=== PATIENT | male | born 1985 | race African-American/Black ===

== ENCOUNTER 2019-11-03 07:40 | Emergency (ER) | payer MEDICAID ==
[~2019-11-03] VITALS: Ht 172.7 cm; Wt 90.7 kg
[2019-11-03 08:00] VITALS: BP 143/71
--- NOTE | 2019-11-03 08:04 | Emergency Room Report ---
History of Present Illness General Chief Complaint: Vomiting Source: Patient Present Illness HPI 34-year-old male with vomiting since 2 AM. Reports innumerable episodes of vomiting nonbloody nonbilious. Last episode 15 minutes prior to arrival. Patient unable to tolerate Pedialyte. Patient reports associated nausea. Patient had subjective fevers. Patient had no recent travel. Patient did not eat anything out of the ordinary. He describes diffuse crampy abdominal pain with episodes of vomiting. Patient denies any diarrhea constipation. Patient did not try any medications. He denies any prior medical history or surgeries. Denies alcohol consumption or drug use. Allergies: Coded Allergies: No Known Allergies (Unverified , 11/03/19) Patient History Past Medical History: none Past Surgical History: none Pertinent Family History: none Social History: Denies: smoking, alcohol use, drug use Nursing Documentation-[facility] Past Medical History: No Stated History Review of Systems Constitutional: Denies: chills, fever Respiratory: Denies: cough, shortness of breath Cardiovascular: Denies: chest pain, palpitations Gastrointestinal: Reports: abdominal pain, nausea, vomiting; Denies: diarrhea Genitourinary: Denies: hematuria, pain Musculoskeletal: Denies: joint swelling Skin: Denies: rash, lesions Neurological: Denies: headache, dizziness Physical Exam Vital Signs Date Time Temp Pulse Resp B/P (MAP) Pulse Ox O2 Delivery O2 Flow Rate FiO2 11/03/19 07:50 97.9 88 14 113/73 (86) 98 Room Air Sp02 EP Interpretation: reviewed General Appearance: well appearing, no apparent distress, non-toxic Head: normocephalic, atraumatic Eyes: bilateral eye normal inspection ENT: hearing grossly normal, EOM grossly intact, moist mucus membranes Neck: supple Respiratory: lungs clear, normal breath sounds, no respiratory distress, speaking full sentences Cardiovascular #1: normal peripheral pulses, regular rate, rhythm, no edema, normal capillary refill Cardiovascular #2: 2+ radial (R), 2+ radial (L) Gastrointestinal: non tender, soft, no mass, no organomegaly, non-distended, no guarding, no hernia, no rebound Rectal: deferred Musculoskeletal: moves extm spontaneously, no lower extremity edema Neurologic: grossly normal Psychiatric: mood/affect normal Skin: warm/dry, normal turgor Medical Decision Making Diagnostic Impression: Primary Impression: Vomiting ER Course 34-year-old male with nausea and vomiting. Since 2 AM. No abdominal surgeries , and is on exam. Differential includes gastroenteritis, gastritis, cholecystitis, cholelithiasis , small bowel obstruction, acute abdomen, hernia Doubt bowel obstruction, acute abdomen or hernia given patient is nontender exam with no masses and with no prior surgical history. Patient's symptoms likely consistent with gastroenteritis. Will give IV fluids and IV Zofran. Will reassess. Laboratory Tests Test 11/03/19 08:16 11/03/19 09:11 White Blood Count 10.5 K/UL (4.8-10.8) Red Blood Count 6.08 M/UL (4.70-6.10) Hemoglobin 15.5 G/DL (14.2-18.0) Hematocrit 47.1 % (42.0-52.0) Mean Corpuscular Volume 78 FL (80-99) L Mean Corpuscular Hemoglobin 25.4 PG (27.0-31.0) L Mean Corpuscular Hemoglobin Concent 32.8 G/DL (32.0-36.0) Red Cell Distribution Width 12.1 % (11.6-14.8) Platelet Count 212 K/UL (150-450) Mean Platelet Volume 7.6 FL (6.5-10.1) Neutrophils (%) (Auto) % (45.0-75.0) Lymphocytes (%) (Auto) % (20.0-45.0) Monocytes (%) (Auto) % (1.0-10.0) Eosinophils (%) (Auto) % (0.0-3.0) Basophils (%) (Auto) % (0.0-2.0) Differential Total Cells Counted 100 Neutrophils % (Manual) 96 % (45-75) H Lymphocytes % (Manual) 3 % (20-45) L Monocytes % (Manual) 1 % (1-10) Eosinophils % (Manual) 0 % (0-3) Basophils % (Manual) 0 % (0-2) Band Neutrophils 0 % (0-8) Platelet Estimate Adequate Platelet Morphology Normal Red Blood Cell Morphology Normal Sodium Level 141 MMOL/L (136-145) Potassium Level 3.8 MMOL/L (3.5-5.1) Chloride Level 104 MMOL/L (98-107) Carbon Dioxide Level 25 MMOL/L (21-32) Anion Gap 12 mmol/L (5-15) Blood Urea Nitrogen 18 mg/dL (7-18) Creatinine 1.2 MG/DL (0.55-1.30) Estimate Glomerular Filtration Rate > 60 mL/min (>60) Glucose Level 147 MG/DL (74-106) H Calcium Level 9.5 MG/DL (8.5-10.1) Total Bilirubin 0.3 MG/DL (0.2-1.0) Aspartate Amino Transferase (AST) 18 U/L (15-37) Alanine Aminotransferase (ALT) 35 U/L (12-78) Alkaline Phosphatase 58 U/L (46-116) Total Protein 7.9 G/DL (6.4-8.2) Albumin 4.4 G/DL (3.4-5.0) Globulin 3.5 g/dL Albumin/Globulin Ratio 1.3 (1.0-2.7) Lipase 109 U/L (73-393) Urine Color Yellow Urine Appearance Clear Urine pH 5 (4.5-8.0) Urine Specific [place] 1.020 (1.005-1.035) Urine Protein 2+ (NEGATIVE) H Urine Glucose (UA) Negative (NEGATIVE) Urine Ketones 1+ (NEGATIVE) H Urine Blood Negative (NEGATIVE) Urine Nitrite Negative (NEGATIVE) Urine Bilirubin Negative (NEGATIVE) Urine Urobilinogen Normal MG/DL (0.0-1.0) Urine Leukocyte Esterase Negative (NEGATIVE) Urine RBC 0 /HPF (0 - 0) Urine WBC 0 /HPF (0 - 0) Urine Squamous Epithelial Cells Occasional /LPF Urine Amorphous Sediment Few /LPF (NONE) H Urine Bacteria Occasional /HPF (NONE) Urine Mucus Moderate /LPF (NONE/OCC) H Lab Results Impression CBC within normal limits, chemistry within normal limits, normal BUN and creatinine. Urinalysis within normal limits other than mild elevated ketone. Last Vital Signs Date Time Temp Pulse Resp B/P (MAP) Pulse Ox O2 Delivery O2 Flow Rate FiO2 11/03/19 07:50 97.9 88 14 113/73 (86) 98 Room Air Reevaluation Impression Patient tolerated p.o. challenge. Patient stable for outpatient follow-up and discharge. Patient given Zofran ODT for symptomatic control. Given warning and return precautions. Disposition: HOME, SELF-CARE Condition: Stable Scripts Ondansetron Odt* (ZOFRAN ODT*) 8 Mg Tab.rapdis 8 MG ORAL Q6H PRN for Nausea & Vomiting, #10 TAB Prov: Joshua Flowers M.D. 11/03/19 Referrals: NOT CHOSEN IPA/,REFERRING (PCP) Patient Instructions: Nausea and Vomiting, Adult Additional Instructions: Please follow-up with your primary care doctor in 2 to 3 days for reevaluation. Joshua Flowers M.D. Nov 03, 2019 08:04
--- NOTE | 2019-11-03 08:10 | NUR ---
ED Nurse Note: Pt ambulated into ED from home. Pt reports n/v since 0200, diarrhea since yesterday. Pt denies consuming raw or spoiled foods. Pt reports having a fever earlier this morning. Pt denies injury to area. Pt reports sore abdomen 12/23. Pt states that other members in his household are also ill. ERMD at bedside
[2019-11-03 08:24] LABS: HEMATOCRIT 47.1 % (42.0-52.0); HEMOGLOBIN 15.5 G/DL (14.2-18.0); MEAN CORPUSCULAR VOLUME 78 FL (80-99); PLATELET COUNT 212 K/UL (150-450); RED BLOOD COUNT 6.08 M/UL (4.70-6.10); RED CELL DISTRIBUTION WIDTH 12.1 % (11.6-14.8); WHITE BLOOD COUNT 10.5 K/UL (4.8-10.8)
[2019-11-03 08:38] LABS: ANION GAP 12 mmol/L (5-15); BLOOD UREA NITROGEN 18 mg/dL (7-18); CALCIUM 9.5 MG/DL (8.5-10.1); CARBON DIOXIDE 25 MMOL/L (21-32); CHLORIDE 104 MMOL/L (98-107); CREATININE 1.2 MG/DL (0.55-1.30); POTASSIUM 3.8 MMOL/L (3.5-5.1); SODIUM 141 MMOL/L (136-145)
[2019-11-03 08:42] LABS: ALANINE AMINOTRANSFERASE 35 U/L (12-78); ALBUMIN 4.4 G/DL (3.4-5.0); ALBUMIN/GLOBULIN RATIO 1.3 (1.0-2.7); ALKALINE PHOSPHATASE 58 U/L (46-116); ASPARTATE AMINO TRANSFERASE 18 U/L (15-37); BILIRUBIN,TOTAL 0.3 MG/DL (0.2-1.0)
--- NOTE | 2019-11-03 09:05 | NUR ---
ED Nurse Notes: ERMD at bedside
[2019-11-03 09:22] LABS: APPEARANCE,URINE CLEAR; BILIRUBIN, URINE NEGATIVE (NEGATIVE); GLUCOSE, URINE (UA) NEGATIVE (NEGATIVE); KETONES,URINE 1+ (NEGATIVE); LEUKOCYTE ESTERASE ,URINE NEGATIVE (NEGATIVE); NITRITE,URINE NEGATIVE (NEGATIVE); PH,URINE 5 (4.5-8.0); PROTEIN,URINE 2+ (NEGATIVE); UROBILINOGEN,URINE NORMAL MG/DL (0.0-1.0)
[2019-11-03 09:31] LABS: COLOR,URINE YELLOW
[2019-11-03] MEDS ORDERED: ZOFRAN ODT8 MG ORAL (09:41)
--- NOTE | 2019-11-03 10:05 | NUR ---
ER DISCHARGE NOTE: Patient is cleared to be discharged home per ERMD, pt is aox4, on room air, with stable vital signs. pt was given dc and prescription instructions, pt was able to verbalize understanding, pt id band and iv site removed without complications. pt is able to ambulate with steady gait. pt took all belongings.
[2019-11-03 10:06] VITALS: BP 139/67
== END 2019-11-03 10:06 | disposition home or self-care (01) ==
LOC: EMR 07:52
DX: R11.10 Vomiting, unspecified (principal); R10.9 Unspecified abdominal pain
CPT/HCPCS: 36415; 80053; 81003; 83690; 85007; 85025; 96361; 96374; J2405; Z7502; 99284